=== PATIENT | female | born 1980 | race African-American/Black ===

== ENCOUNTER 2021-03-19 11:12 | Emergency (ER) | payer OTHER, SELFPAY ==
--- NOTE | ~2021-03-19 | XR_ITS ---
EXAMINATION: XR chest 1V portable INDICATION: Cough and congestion, COVID 19 positive TECHNIQUE: Portable AP chest at 1530 hours COMPARISON: None available FINDINGS: The lungs are free of acute opacities. There is no pleural effusion or pneumothorax. The ca rdiomediastinal silhouette is normal. The visualized osseous structures are unremarkable. IMPRESSION: 1. No acute cardiopulmonary abnormality. Reviewed, dictated and finalized at location F. NESS ANALYSIS CONSULTANT
[2021-03-19 11:44] VITALS: BP 121/76; PULSE 100; RESP 16; TEMP 36.4; O2SAT 100
--- NOTE | 2021-03-19 15:06 | ECG_ITS ---
Measurements Intervals [place] Rate: 75 P: 55 NC: 125 QRS: 71 QRSD: 86 T: 43 QT: 340 QTc: 380 Interpretive Statements SINUS RHYTHM BASELINE WANDER- I, II NORMAL ECG Electronically Signed On 03-19-2021 18:22:55 FRESH WORK INSPECTOR by Bart Orlando D.O.
--- NOTE | 2021-03-19 15:11 | ED.GENADULT ---
HPI - General Adult General Chief complaint: Upper Respiratory Infection Stated complaint: congestion Time Seen by Provider: 03/19/21 13:58 Source: patient Mode of arrival: ambulatory Limitations: no limitations History of Present Illness HPI narrative: Patient presents for evaluation of respiratory symptoms since 03/11/2021. She reports nonproductive cough, SOB, fever and chills. She states her boyfriend currently has Covid. She went to an urgent care yesterday and had a Covid test which is pending. She came in today due to pleuritic chest pain, which is persisted. She denies any nausea, vomiting, diarrhea. She has not received COVID vaccination. No history of Covid. She does not smoke. She has an underlying hx of seizures but has been noncompliant with antiepileptics. She has tried Robitussin for her symptoms. No additional complaints or concerns. Related Data Allergies Allergy/AdvReac Type Severity Reaction Status Date / Time bupivacaine Allergy Unknown Unknown Verified 03/19/21 11:46 Review of Systems Review of Systems: CONSTITUTIONAL: Reports fever and chills. Denies sweats. EYES: Denies visual changes, redness, or discharge. ENT: Denies rhinorrhea, congestion, sore throat, or otalgia. CARDIOVASCULAR: Reports pleuritic chest pain. Denies edema. RESPIRATORY: Reports cough and shortness of breath. GASTROINTESTINAL: Denies abdominal pain, nausea, vomiting, or diarrhea. GENITOURINARY: Denies dysuria or hematuria. SKIN: Denies rash or itching. MUSCULOSKELETAL: Denies back pain, joint pain, or myalgia. NEUROLOGIC: Denies headache, numbness, dizziness, or weakness. PSYCHIATRIC: Denies anxiety or depression. [facility] Past Medical History Medical History (Updated 03/19/21 @ 19:01 by SARITA Álvarez, KARL) Seizures Surgical History Surgical History No pertinent past surgical history Family History Family History (Updated 03/19/21 @ 15:15 by SARITA Álvarez, KARL) Mother No pertinent past medical history Social History Social History (Updated 03/19/21 @ 15:16 by SARITA Álvarez, KARL) Smoking status: Never smoker Substance use: never Gender identity (if verbalized by the patient): Female Sexual Orientation (if Verbalized by the Patient): Straight or Heterosexual Spiritual care concerns: No Exam Narrative: GENERAL: Well-appearing, well-nourished, and in no acute distress. HEAD: Normocephalic, atraumatic. EYES: PERRLA and EOMI. ENT: Nares clear, no rhinorrhea or epistaxis. Mucous membranes moist. Oropharynx without tonsillar hypertrophy exudate or other lesions. Bilateral TMs pearly [place] nonbulging NECK: Supple. No adenopathy or masses. No carotid bruits or JVD CHEST: Clear to auscultation. No respiratory distress. Cough present on exam. No wheezes rales or rhonchi HEART: Regular rate and rhythm. No murmur heard. Normal peripheral pulses. ABDOMEN: Soft, nontender, nondistended, normal active bowel sounds. EXTREMITIES: Normal range of motion. No edema. SKIN: Warm, dry, no rash. NEURO: No focal deficits. Alert and oriented x3. PSYCH: Normal mood and affect. Course Course Emergency Course: This a 40-year-old female who presented with complaints of respiratory symptoms with the recent exposure to Covid. Covid was positive. Chest x-ray negative for acute process. Trop was negative. EKG with no acute ischemic changes. Oxygen saturations are 100% on room air and heart rate was in the 70s to 80s. There was low clinical suspicion for PE. I offered to keep pt in ED for further testing which she declined. She was given toradol. On reassessment, she requested dc orders home. She was advised to return at any time for further evaluation and treatment. Patient agreed with plan of care. Vital Signs Vital signs: Vital Signs Temperature 36.4 C 03/19/21 11:44 Pulse Rate 100 03/19/21 11:44 Respiratory Rate 16 03/19/21 11:44 Blo
[2021-03-19 17:02] LABS: SARS-CoV-2 RNA PCR Positive
[2021-03-19 18:11] VITALS: BP 115/63; PULSE 84; TEMP 37.1; O2SAT 100
[2021-03-19 18:30] LABS: Basophils Percent Auto 0.3 % (0.2-1.2); Eosinophils Absolute Auto 0.1 K/mm3 (0-0.3); Eosinophils Percent Auto 1.6 % (0-4.4); Hematocrit 40.9 % (37.0-47.0); Hemoglobin 13.7 g/dL (12.0-15.0); Immature Granulocyte Absolute 0.01 K/mm3 (0.00-0.031); Immature Granulocyte Percent A 0.2 % (0-0.5); Lymphocytes Absolute Auto 1.77 K/mm3 (0.9-3.2); Lymphocytes Percent Auto 30.7 % (18.3-44.2); Mean Corpuscular HGB Conc 33.5 g/dl (32-36); Mean Corpuscular Hemoglobin 30.6 pg (26-34); Mean Corpuscular Volume 91.5 fl (80-100); Mean Platelet Volume 9.7 fl (7.4-10.4); Monocytes Absolute Auto 0.4 K/mm3 (0.1-0.6); Monocytes Percent Auto 7.3 % (2.6-8.5); Neutrophils Absolute Auto 3.5 K/mm3 (1.3-6.7); Neutrophils Percent Auto 59.9 % (45.5-73.1); Platelet Count Result 219 k/mm3 (150-375); Red Blood Count 4.47 M/mm3 (4.2-5.4); White Blood Count 5.8 K/mm3 (4.5-10.0)
[2021-03-19 18:39] LABS: Alanine Aminotransferase 20 U/L (4-35); Albumin Level 4.4 g/dL (3.5-5.1); Alkaline Phosphatase 56 U/L (38-126); Anion Gap 10 mmol/L (8-16); Aspartate Amino Transferase 28 U/L (14-36); Bilirubin,Total 0.8 mg/dL (0.2-1.3); Blood Urea Nitrogen 7 mg/dL (7-17); Calcium 9.4 mg/dL (8.4-10.2); Carbon Dioxide 21 mmol/L (22-30); Chloride 106 mmol/L (98-107); Estimated CRCL calculation 86 ml/min; Estimated Glomerular Filt Rate > 60; Glucose 87 mg/dL (65-110); Potassium 4.2 mmol/L (3.4-5.0); Sodium 137 mmol/L (137-145)
[2021-03-19 18:49] LABS: Troponin I 0.017 ng/mL (0.000-0.034)
[2021-03-19] MEDS: KETOROLAC 30 MG/ML VIAL (*BKC) IV PUSH (19:15)
== END 2021-03-19 19:20 | disposition home or self-care (01) ==
PROVIDERS: Emergency Provider Nurse Practitioner
DX: U07.1 COVID-19 (principal); R07.81 Pleurodynia; R56.9 Unspecified convulsions; Z91.14 Patient's other noncompliance with medication regimen
CPT/HCPCS: 36415; 71045; 80053; 84484; 85025; 85055; 93005; 96374; 99284; C9803; J1885; U0003; U0005

== ENCOUNTER 2022-04-11 15:53 | Emergency (ER) | payer OTHER, SELFPAY ==
--- NOTE | ~2022-04-11 | XR_ITS ---
EXAMINATION: XR chest 2V DATE: 04/11/2022 17:18 INDICATION: Central and left-sided chest pain TECHNIQUE: PA and lateral views of the chest were obtained. COMPARISON: Chest radiograph dated 03/19/2021 FINDINGS: The lungs remain clear with no focal airspace opacities, pulmonary edema, pleural effusion or pneumot horax. The cardiomediastinal silhouette is normal. Mild thoracic spondylosis. IMPRESSION: 1. No acute cardiopulmonary disease. Reviewed, dictated and finalized at location A. RETE SAW OPERATOR
--- NOTE | ~2022-04-11 | CT_ITS ---
EXAMINATION: CTA chest PE protocol DATE: 04/11/2022 21:18 INDICATION: eval for PE, elevated dimer TECHNIQUE: Computed tomography angiography (CTA) of the chest was performed with 100 mL Omnipaque-350 intravenous contrast timed to evaluate the pulmonary arteries. Coronal maximum intensity projection 3D-reconstructions were created by the technologist. The dose-length product (DLP) was 227.95 mGy-cm. Automated exposure control and iterative reconstruction technique were employed. COMPARISON: X-ray chest, same date. FINDINGS: Lung parenchyma and airways: Clear. Pleura: Unremarkable. Thoracic inlet, axillae and chest wall: Unremarkable. Thoracic aorta: Normal. Mediastinum: Normal. Heart and pericardium: Normal. Coronary artery calcifications: Absent. Upper abdomen: No significant finding. Bones: No acute osseous finding. Pulmonary arteries: Study quality: Adequate. No pulmonary emboli detected. IMPRESSION: No CT evidence of acute pulmonary embolus. No acute process detected in the chest. Reviewed, dictated and finalized at location K. NING AND DEVELOPMENT ADMINISTRATOR IMPRESSION: No CT evidence of acute pulmonary embolus. No acute process detected in the [address].
[2022-04-11 15:57] VITALS: BP 145/69; PULSE 96; RESP 16; TEMP 36.5; O2SAT 100
--- NOTE | 2022-04-11 16:00 | ECG_ITS ---
Measurements Intervals [place] Rate: 90 P: 60 DE: 118 QRS: 68 QRSD: 87 T: 35 QT: 321 QTc: 394 Interpretive Statements SINUS RHYTHM WITH SHORT DE INTERVAL BASELINE WANDER- V3-V6 BORDERLINE ECG COMPARED TO ECG 03/19/2021 16:19:27 NO SIGNIFICANT CHANGES Electronically Signed On 04-11-2022 16:15:06 BATTERY INSTALLER by Bart Orlando D.O.
[2022-04-11 16:28] LABS: Basophils Percent Auto 0.4 % (0.2-1.2); Eosinophils Absolute Auto 0.2 K/mm3 (0-0.3); Eosinophils Percent Auto 4.9 % (0-4.4); Hematocrit 41.7 % (37.0-47.0); Hemoglobin 13.8 g/dL (12.0-15.0); Immature Granulocyte Absolute 0.01 K/mm3 (0.00-0.031); Immature Granulocyte Percent A 0.2 % (0-0.5); Lymphocytes Percent Auto 36.3 % (18.3-44.2); Mean Corpuscular HGB Conc 33.1 g/dl (32-36); Mean Corpuscular Hemoglobin 29.7 pg (26-34); Mean Corpuscular Volume 89.9 fl (80-100); Mean Platelet Volume 9.5 fl (7.4-10.4); Monocytes Absolute Auto 0.3 K/mm3 (0.1-0.6); Neutrophils Absolute Auto 2.4 K/mm3 (1.3-6.7); Neutrophils Percent Auto 52.2 % (45.5-73.1); Platelet Count Result 304 k/mm3 (150-375); Red Blood Count 4.64 M/mm3 (4.2-5.4); Red Cell Distribution Width 13.1 % (11.5-14.5); White Blood Count 4.7 K/mm3 (4.5-10.0)
[2022-04-11 16:31] LABS: Alanine Aminotransferase 15 U/L (6-35); Albumin Level 4.4 g/dL (3.5-5.1); Alkaline Phosphatase 59 U/L (38-126); Anion Gap 8 mmol/L (8-16); Aspartate Amino Transferase 22 U/L (14-36); Bilirubin,Total 0.4 mg/dL (0.2-1.3); Blood Urea Nitrogen 8 mg/dL (7-17); Calcium 8.8 mg/dL (8.4-10.2); Carbon Dioxide 26 mmol/L (22-30); Chloride 102 mmol/L (98-107); Estimated CRCL calculation 75 ml/min; Estimated Glomerular Filt Rate > 60; Glucose 107 mg/dL (65-110); Lipase 122 U/L (23-300); Potassium 3.6 mmol/L (3.4-5.0); Sodium 136 mmol/L (137-145)
[2022-04-11 16:42] LABS: Troponin I < 0.012 ng/mL (0.000-0.034)
--- NOTE | 2022-04-11 16:46 | ED.CHESTPAIN ---
HPI - Chest Pain General Chief Complaint: Chest Pain Stated Complaint: chest pain Time Seen by Provider: 04/11/22 16:41 Source: patient Mode of arrival: ambulatory Limitations: no limitations History of Present Illness HPI narrative: Patient is a 41-year-old female with a history of seizure disorder, previously on Keppra, presenting to the emergency department for evaluation of chest pain. Patient reports acute onset of chest pain 3 days ago and since then has been constant in nature. Described as a pressure overlying her chest and does increase with movement. Patient reports pain is worsened when leaning backward, relieved with sitting forward. She denies lower extremity pain, swelling, redness. Denies history of coagulopathy. She does take oral contraception. She denies any cough or hemoptysis. She denies fever, chills, shortness of breath, wheezing. She denies any history of hypertension, hyperlipidemia. No family history of sudden cardiac . Patient denies any ripping or tearing sensation to the flank. She denies any radiation of the pain to the jaw, neck, shoulder, back. No associated lightheadedness, diaphoresis. Patient states that she was previously on Keppra therapy for seizure disorder, discontinued that approximately a year ago, has not had any breakthrough seizures. Related Data Allergies Allergy/AdvReac Type Severity Reaction Status Date / Time bupivacaine Allergy Unknown Unknown Verified 03/19/21 11:46 Review of Systems Review of Systems: CONSTITUTIONAL: Denies fever, chills, or sweats. EYES: Denies visual changes, redness, or discharge. ENT: Denies rhinorrhea, congestion, sore throat, or otalgia. CARDIOVASCULAR: Reports chest pain without palpitations RESPIRATORY: Denies cough or dyspnea. GASTROINTESTINAL: Denies abdominal pain, nausea, vomiting, or diarrhea. GENITOURINARY: Denies dysuria or hematuria. SKIN: Denies rash or itching. MUSCULOSKELETAL: Denies back pain, joint pain, or myalgia. NEUROLOGIC: Denies headache, numbness, or weakness. [facility] Past Medical History Medical History (Updated 04/11/22 @ 21:49 by Linda Clemens MD) Seizures Surgical History Surgical History No pertinent past surgical history Family History Family History (Updated 03/19/21 @ 15:15 by Logan Dillard, NYLON MENDER, ) Mother No pertinent past medical history Social History Social History (Updated 03/19/21 @ 15:16 by SUSANA ÁlvarezP, ) Smoking status: Never smoker Substance use: never Gender identity (if verbalized by the patient): Female Sexual Orientation (if Verbalized by the Patient): Straight or Heterosexual Spiritual care concerns: No Exam Narrative: GENERAL: Awake, alert, conversant HEAD: Normocephalic, atraumatic. EYES: PERRLA and EOMI. ENT: Nares clear, no rhinorrhea or epistaxis. Mucous membranes moist. NECK: Supple. CHEST: No respiratory distress, breathing even and non labored, frontal chest wall tenderness which reproduces pain HEART: Regular rate, sinus rhythm ABDOMEN:Non distended, non tender EXTREMITIES: Normal range of motion. No edema.No calf tenderness bilaterally SKIN: Warm, dry, no rash. NEURO:No focal deficits. Alert and oriented x3 Course Vital Signs Vital signs: Vital Signs Temperature 36.5 C 04/11/22 15:57 Pulse Rate 96 04/11/22 15:57 Respiratory Rate 16 04/11/22 15:57 Blood Pressure 145/69 H 04/11/22 15:57 Pulse Oximetry 100 04/11/22 15:57 Oxygen Delivery Room Air 04/11/22 15:57 Temperature 36.5 C 04/11/22 15:57 Pulse Rate 96 04/11/22 15:57 Respiratory Rate 16 04/11/22 15:57 Blood Pressure 145/69 H 04/11/22 15:57 Pulse Oximetry 100 04/11/22 15:57 Oxygen Delivery Room Air 04/11/22 15:57 MDM - Chest Pain MDM Narrative Medical decision making narrative: Patient presenting for evaluation of chest pain that is reproducible on exam. Unfortunate
[2022-04-11 19:15] LABS: Prothrombin Time 12.8 Seconds (11.1-14.7)
[2022-04-11 19:16] LABS: Partial Thromboplastin Time 27.6 SECONDS (22.3-36.8)
[2022-04-11 19:27] LABS: Troponin I < 0.012 ng/mL (0.000-0.034)
[2022-04-11] MEDS: IBUPROFEN 600 MG TABLET PO (19:27)
[2022-04-11 19:35] LABS: D Dimer 1.05 ug/mL (<0.48)
[2022-04-11 22:14] VITALS: BP 122/78; PULSE 78; RESP 18; O2SAT 100
== END 2022-04-11 22:20 | disposition home or self-care (01) ==
PROVIDERS: Emergency Medicine; Emergency Provider Emergency Medicine
DX: R07.89 Other chest pain (principal); M94.0 Chondrocostal junction syndrome [Tietze]; G40.909 Epilepsy, unspecified, not intractable, without status epilepticus; R94.31 Abnormal electrocardiogram [ECG] [EKG]
CPT/HCPCS: 36415; 71046; 71275; 80053; 81025; 83690; 84484; 85025; 85380; 85610; 85730; 93005; 99284; A9270; Q9967